=== PATIENT | male | born 1970 | race Caucasian/White ===

== ENCOUNTER 2019-11-12 11:39 | Emergency (ER) | payer BC, SELFPAY ==
[2019-11-12 11:41] VITALS: BP 192/118; PULSE 84; RESP 21; TEMP 36.6; O2SAT 99; BMI 27.1
--- NOTE | 2019-11-12 11:43 | ED.RN ---
NO OLD EKG
--- NOTE | 2019-11-12 12:29 | EKG12_ITS ---
Test Reason : CP Blood Pressure : / mmHG Vent. Rate : 083 BPM Atrial Rate : 083 BPM P-R Int : 152 ms QRS Dur : 088 ms QT Int : 382 ms P-R-T Axes : 053 054 030 degrees QTc Int : 448 ms Normal sinus rhythm Minimal voltage criteria for LVH, may be normal variant Borderline ECG Confirmed by BRITTANY COOK, DOUGLAS ([id number]), features editor WOJCIECH MORALES ([id number]) on 11/14/2019 9:49:54 AM Referred By: YING Confirmed By:DOUGLAS SOTO MD
--- NOTE | 2019-11-12 12:31 | ED.DCSUM_ITS ---
- ER Visit Summary Date of Service: 11/12/19 Chief Complaint: Panic attack History of Present Illness: The patient is a 49 M presenting after a panic attack. Patient states he has been under a lot of stress. He states that his girlfriend's children live with them. He has been having arguments with both h is girlfriend and her children. This is causing increased stress. He denies suicidal or homicidal thoughts. Today he began hyperventilating and felt tingling all over. He had chest pain associated with this. He then had a syncopal episode. He denies injury. He has had these symptoms in the past with panic attacks. He takes Lexapro for his anxiety. No recent changes to his medications. No other complaints. Physical Examination: Vitals are stable. Patient is afebrile. Alert no acute distress. HEENT exam is unremarkable. Neck is supple. Lungs are clear and equal bilaterally. Heart is regular rate and rhythm. Abdomen is soft nontender nondistended. Extremities are unremarkable. Skin is warm and dry. No focal neurologic deficit. Anxious Remainder of exam is unremarkable. Emergency Department Course and Treatment: Patient was given Ativan. EKG is sinus rate of 83 with no acute ischemic changes. Chest x-ray shows no acute process. CBC, chemistries unremarkable. Troponin is negative. D-dimer is normal. On reevaluation, patient is feeling improved and is requesting discharge home. He refused delta troponin. He will sign out AGAINST MEDICAL ADVICE. He understands risks of leaving including [place] and . He will follow-up with his primary care physician for blood pressure recheck. Advised return to ED for worsening complaints. Disposition: Discharge home Impression: Panic attack This note was generated with [employer] dictation software. It may contain incorrect words, spelling, and punctuation that were not noted in review of the chart prior to signing ED Disposition - Plan for ED Patient: Instructions: Panic Attack Referrals: [facility] Doctor,Out of [NON-STAFF] -
--- NOTE | 2019-11-12 12:40 | RAD_ITS ---
STUDY: X-RAY CHEST REASON FOR EXAM: Male, 49 years old. PANIC ATTACK AT HOME, THEN HAD SYNCOPAL EPISODE. HX OF PANIC ATTACK TECHNIQUE: Single AP portable view of the chest. COMPARISON: None. FINDINGS: EKG electrodes are seen. The lungs are clear and expanded. There is no demonstrated pleural abnormality. Normal size heart. Normal mediastinum and pancho. Normal visualized pulmonary arteries. Normal visualized aortic arch and descending thoracic aorta. Normal visualized thoracic spine. Normal visualized ribs, clavicles, and shoulders. There is no demonstrated abnormality of the visualized soft tissue structures of the upper abdomen. RAD/Chest 1 View (Portable) IMPRESSION: Normal x-ray examination of the chest. Electronically Signed: Oliverio Vinson, at 13:10 EST , Service support ,
[2019-11-12] MEDS: LORazepam 0.5 MG Tablet PO (12:49)
[2019-11-12] MEDS: 0.9% Normal Saline 1,000 ML 1000 ML IV (12:50)
[2019-11-12 13:05] LABS: Absolute Lymphocyte Count 1.55 X10^3/uL (0.83-4.51); Absolute Neutrophil Count 8.4 X10^3/uL (2.0-7.7); Basophil# 0.05 X10^3/uL; Basophil% 0.5 % (0-1); Eosinophil# 0.02 X10^3/uL; Eosinophils% 0.2 % (0-5); Hematocrit 44.1 % (40-54); Hemoglobin 15.4 g/dL (13.0-16.5); Lymphocyte # 1.55 X10^3/ul (4.0); Lymphocyte % 14.3 % (19-41); Mean Corp Hgb Conc 34.9 g/dL (32-36); Mean Corpuscular Hgb 33.9 pg (27.0-32.0); Mean Corpuscular Volume 97.1 fL (80-94); Mean Platelet Vol. 9.5 fl (6.2-12.0); Monocyte# 0.81 X10^3/uL; Monocyte% 7.5 % (0-10); NRBC Flagged by Analyzer 0 % (0-5); Neutrophil # 8.39 X10^3/uL (2.7-7.7); Neutrophil % 77.1 % (47-70); Platelet Count 339 K/mm3 (150-450); RBC Distribution Width CV 13.2 % (11.6-14.6); RBC Distribution Width SD 47.1 fl (35.1-43.9); Red Blood Count 4.54 M/mm3 (4.6-6.2); White Blood Count 10.9 K/mm3 (4.4-11.0)
[2019-11-12 13:24] LABS: Anion Gap 6 (5-15); BUN 10 mg/dL (7-18); BUN/Creat Ratio 11.4 RATIO (10-20); Chloride 105 mmol/L (98-107); Creatinine, Serum 0.88 mg/dL (0.70-1.30); EST Glomerular Filtration Rate 98 mL/min (>60); Est Glom Filt Rate - Afr Amer 118 mL/min (>60); Estimated Creatinine Clearance 116.76 ml/min; Glucose 106 mg/dL (74-106); Potassium 3.4 mmol/L (3.5-5.1); Sodium Level 140 mmol/L (136-145)
[2019-11-12 13:29] LABS: D-Dimer Quantitative (DVT/PE) 0.45 FEU/ug/m (0.27-0.49)
[2019-11-12 14:02] VITALS: BP 186/77; PULSE 105; RESP 18; O2SAT 96
--- NOTE | 2019-11-12 15:11 | ED.DEP ---
ED Disposition - Plan for ED Patient: Instructions: Panic Attack Referrals: [facility],Out of [NON-STAFF] -
--- NOTE | 2019-11-12 15:36 | DCINST.ED_ITS ---
ED Disposition - Plan for ED Patient: Instructions: Panic Attack Prescriptions: Escitalopram Oxalate [Lexapro] 20 mg PO DAILY #30 tablet Referrals: [facility] Doctor,Out of [NON-STAFF] -
--- NOTE | 2019-11-12 15:36 | ED.DEP ---
ED Disposition - Plan for ED Patient: Instructions: Panic Attack Prescriptions: Escitalopram Oxalate [Lexapro] 20 mg PO DAILY #30 tablet Referrals: [facility] Doctor,Out of [NON-STAFF] -
[2019-11-12 15:47] VITALS: BP 153/112; PULSE 92; RESP 16; O2SAT 99
== END 2019-11-12 15:48 | disposition home or self-care (01) ==
PROVIDERS: Emergency Provider Emergency Medicine; PCP Family Medicine
DX: F41.0 Panic disorder [episodic paroxysmal anxiety] (principal); Z53.21 Procedure and treatment not carried out due to patient leaving prior to being seen by health care provider; Z79.899 Other long term (current) drug therapy
CPT/HCPCS: 71045; 80048; 84484; 85025; 85379; 93005; 96360; 96361; 99285; A4216